=== PATIENT | female | born 1935 | race Caucasian/White ===

== ENCOUNTER 2017-02-28 08:55 | Inpatient (IN) | payer MEDICARE, OTHER ==
[~2017-02-28] VITALS: Ht 152.4 cm; Wt 76.6 kg
[2017-02-28] VITALS (7 sets, daily range): BP systolic 143–173; BP diastolic 77–90; PULSE 86–96; RESP 15–19; O2SAT 93–96
[~2017-02-28 08:55] MED LIST: ACET-837 PO; ALBU90AE IH; AMIL5TAB2 PO; ASPI-973 PO; ATEN25TA PO; BECL8.7A6 IH; CHOL500050 PO; CLOP75TA28; CYAN100085 IJ; CYCL10TA9 PO; DEXT1DRO8 BOTH_EYES; ESTR0.5T PO; FLUT9.9S AD; FURO40TA4 PO; HYDR-656 PO; HYOS0.3740 PO; LANS15TA3 PO; NYST1000 PO; VENL37.53 PO; VITA400C64 PO; ZYL100 PO; [UNRECOGNIZED DRUG - CODE] IV
[2017-02-28] MEDS ORDERED: 0.9% Sodium Chloride 1,000 ML IV ONE ×2 (09:26→09:40)
[2017-02-28] MEDS ORDERED: fentaNYL-PF 50 mCg/mL 2 mL Inj IVPUSH PRN ×2 (09:30→17:10)
[2017-02-28] MEDS ORDERED: Ondansetron 2 mg/mL 2 mL Inj IVPUSH ONE (09:30)
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
[2017-02-28] MEDS ORDERED: Ondansetron 8 mg ODT Tablet PO ONE (09:45)
[2017-02-28 10:19] LABS: BASOPHILS % (AUTO) 0.1 % (0-3); MONOCYTES % (AUTO) 7.5 % (4-12); Mean Corpuscular Hemoglobin 30.6 pg (27.0-35.0); Mean Corpuscular Volume 91.7 fL (81-100); NEUTROPHILS % (AUTO) 82.8 % (40-74); Platelet Count 325 bil/L (150-400)
[2017-02-28 10:43] LABS: Magnesium 1.6 mg/dL (1.6-2.6)
[2017-02-28] MEDS: fentaNYL-PF 50 mCg/mL 2 mL Inj IVPUSH PRN ×4 (11:12→22:40)
[2017-02-28] MEDS ORDERED: ProchlorPERazine 5 mg/mL 2 mL Inj IVPUSH ONE (11:40)
--- NOTE | 2017-02-28 11:42 | DRSVH ---
PROCEDURE: CT ABDOMEN AND PELVIS WITH CONTRAST ([id number]) INDICATIONS: ABd pain TECHNIQUE: After the administration of intravenous contrast, 5 mm thick sections acquired from the diaphragm to the symphysis. 5 mm coronal and sagittal reformats were acquired. For radiation dose reduction, the following was used: automated exposure control, adjustment of mA and/or kV according to patient pippa worley. COMPARISON: [facility], CT, CT ABD PELVIS WO CON, 11/18/2015, 4:04. [facility] al, CT, CT ABD PELVIS W CON, 09/17/2016, 16:59. FINDINGS: Image quality: Excellent. ABDOMEN: Lung bases: 19 mm diameter ovoid density within the right lung base, which was not seen on prior exa minations. Lung bases are otherwise clear. Heart size is normal. Solid organs: Liver and spleen are normal in size and enhancement. Gallbladder is surgically absent . Biliary system is non dilated. Pancreas enhances normally. No adrenal nodules. Kidneys demonstr ate normal size and enhancement, without hydronephrosis. Peritoneum and bowel: Moderate hiatal hernia. Stomach is nondistended. Multiple mildly distended and fluid-filled small bowel loops are present, extending to the distal ileum. Colon is nondistended. Sig moid colon anastomosis has been performed. No free fluid or air. No change in mesenteric groundglass density within the right hemipelvis, consistent with scarring. Nodes and vessels: No retroperitoneal or mesenteric adenopathy by size criteria. Aorta and inferior vena cava are normal in size. Miscellaneous: No ventral hernias. PELVIS: Genitourinary: Bladder wall thickness is normal. Miscellaneous: No inguinal hernias or adenopathy. Bones: No suspicious bony lesions. No vertebral body compression fractures. IMPRESSION: 1. Multiple mildly distended and fluid-filled small bowel loops, consistent with obstruction versus i leus/gastroenteritis. 2. No abscess. 3. Moderate hiatal hernia is unchanged. 4. Appendix not seen. No evidence of appendicitis. 5. Right lung base nodule, which is indeterminate. Initial further assessment with chest CT with intr avenous contrast is recommended. Dictated by: Tenisha Foote M.D. on 02/28/2017 at 11:37 Approved by: Tenisha Foote M.D. on 02/28/2017 at 11:41
[2017-02-28] MEDS ORDERED: Dextrose 5% 500 ML IV SCH (14:23)
[2017-02-28] MEDS ORDERED: 0.9% Sodium Chloride 1,000 ML IV SCH (14:23)
[2017-02-28] MEDS ORDERED: Alum-Mag Hydrox-Simeth 30 mL Suspension PO PRN (14:25)
[2017-02-28] MEDS ORDERED: Ondansetron 2 mg/mL 2 mL Inj IVPUSH PRN ×2 (14:25→15:05)
[2017-02-28] MEDS ORDERED: fentaNYL PCA 10 mCg/mL 30 mL Inj IV PRN (14:25)
[2017-02-28 15:01] LABS: APPEARANCE,URINE CLEAR (CLEAR,HAZY); COLOR,URINE YELLOW (YELLOW)
[2017-02-28 15:02] LABS: OCCULT BLOOD,URINE NEGATIVE (NEGATIVE); PH,URINE 5.5 (5.0-8.0); UROBILINOGEN,URINE NORMAL (NORMAL)
--- NOTE | 2017-02-28 15:15 | PCM.HPMED ---
Subjective Date of Service February 28, 2017 Primary Provider: Admitting Physician: Malik Durbin MD Primary Care Physician: Roosevelt Alonzo MD Attending Physician: Malik Durbin MD Chief Complaint: abdominal pain, nausea, vomiting. History of Present Illness: 81yo lady with hx of multiple abdominal surgeries, sbo, crohn's disease, asthma , hx of bladder ca, hld, fibromyalgia 1-2 day hx of generalized abd pain, n/v. inability to tolerate po. no fevers or chills. she is unaware of an inciting factor. symptoms progressively getting worse. no relieving factors at home. improved with pain medication in er. reports opiates cause her to hallucinate ok with fentanyl that was given in er. does not want ng tube to be placed. wants to try bowel rest and pain control. Review of Systems: Positive Review of Symptoms mentioned and elaborated on in HPI. Head: Denies H/A, trauma, loss of consciousness. Eyes: Denies visual loss, diplopia. Ears: Denies: deafness, tinnitis, discharge, pain Nose: Denies discharge, obstruction, epistaxis Mouth: Denies sores, gingival bleeding, jaw pain Neck: Denies stiffness, issues swallowing. Respiratory: Denies dyspnea, cough, sputum. Cardiovascular:Denies CP, palpitations, orthopnea, peripheral edema Gastrointestinal: see hpi Denies melena Genitourinary: Denies dysuria, discharge. Skin: Denies: lesions, rashes, pruritus. Musculoskeletal: Denies joint pain, swelling or increased warmth. Neuro: Denies numbness, tingling, weakness. Psyc: Currently denies feelings of anxiety, depression. Allergies Coded Allergies: Oily Fish (Verified Allergy, Severe, UNKNOWN, 02/28/17) amitriptyline (Verified Allergy, Severe, diarrhea, 02/28/17) azathioprine sodium (Verified Allergy, Severe, pancreatitis, 02/28/17) duloxetine HCl (Verified Allergy, Severe, hallucinations, 02/28/17) iodine (Verified Allergy, Severe, 02/28/17) PATIENT HAS HAD CAT SCANS WITH CONTRAST AT [facility] WITHOUT ANY COMPLICATIONS. NO SENSITIVITY TO CONTRAST DYE. SCAN ON 09/17 WITHOUT A REACTION AT [facility] lorazepam (Verified Allergy, Severe, 02/28/17) metoclopramide (Verified Allergy, Severe, 02/28/17) moxifloxacin (Unverified Allergy, Severe, 02/28/17) nefazodone HCl (Verified Allergy, Severe, 02/28/17) pregabalin (Verified Allergy, Severe, 02/28/17) makes her "goofy" trazodone (Verified Allergy, Severe, 02/28/17) Common Ragweed (Verified Allergy, Intermediate, 02/28/17) azathioprine (Verified Allergy, Intermediate, 02/28/17) hydromorphone (Verified Allergy, Intermediate, nausea/vomiting, 02/28/17) meloxicam (Verified Allergy, Intermediate, very sick, 02/28/17) budesonide (Verified Allergy, Mild, itching and prednisone type reactions , 02/28/17) oxycodone (Verified Allergy, Mild, itching, 02/28/17) prednisone (Verified Allergy, Mild, 06/11/16) tramadol HCl (Verified Allergy, Mild, irritable, sleep px, difficult to d/ c, 02/28/17) Penicillins (Verified Allergy, Unknown, 02/28/17) amoxicillin (Verified Allergy, Unknown, 02/28/17) cefuroxime (Verified Allergy, Unknown, 11/26/15) clavulanic acid (Verified Allergy, Unknown, 02/28/17) indomethacin (Verified Allergy, Unknown, 02/28/17) simvastatin (Verified Allergy, Unknown, fatigue and nausea, 02/28/17) tramadol (Verified Allergy, Unknown, 02/28/17) carisoprodol (Verified Adverse Reaction, Intermediate, night sweats and nightmares, 02/28/17) clindamycin (Verified Adverse Reaction, Intermediate, vomiting and buring in stomach, 06/11/16) gabapentin (Verified Adverse Reaction, Intermediate, behavior issues, 06/11) pravastatin (Verified Adverse Reaction, Intermediate, achey, tired and cold, 02/28/17) amoxicillin trihydrate (Verified Adverse Reaction, Mild, diarrhea, 02/28/17) citalopram hydrobromide (Verified Adverse Reaction, Mild, headache, 02/28/17 ) clarithromycin (Verified Adverse Reaction, Mild, terrible diarrhea, 02/28/17 ) doxycycline (Verified Adverse Reaction, Mild, nausea and diarrhea, 02/28/17) escitalopram oxalate (Verified Adverse Reaction, Mild, headache, 02/28/17) nitrofurantoin (Verified Adverse Reaction, Mild, diarrhea, 02/28/17) Home Medications see med rec PMH as mentioned in hpi Surgical History gallbladder, hysterectomy, bladder surgery, colon resection Family History mom breast ca, sister cva Social History Hx Alcohol Use: No Hx Substance Use: No Hx Tobacco Use: No Smoking Status: Never Smoker Exam Vital Signs Vital Sign - Last Date Time Temp Pulse Resp B/P Pulse Ox O2 Delivery O2 Flow Rate FiO2 02/28/17 14:45 36.9 96 16 143/81 96 Room Air Exam General: No acute distress. Awake, alert. Head: Normocephalic, atraumatic. Eyes: White sclera. Conjunctiva non-injected. Mouth & Throat: No Bleeding. No erythema, lesions, exudates visualized. Neck: No tender adenopathy. Trachea midline. Respiratory: Clear to auscultation bilaterally. Symmetric chest expansion. Regular work of breathing without use of accessory muscles. Cardiovascular: S1, S2. Regular rate and rhythm without murmurs, rubs or gallops. Pulses 2+ equal bilaterally. Abdomen: Normal bowel sounds x4 quadrants. Soft, non-tender, mild distension. scattered areas of tenderness. no rebound tenderness, no peritoneal signs. Extremities: Intact. no joint effusions. no lower extremity tenderness, swelling, erythema or increased warmth. Skin: Intact, no lesions, no rash. Neurologic: Awake, alert, oriented x3. No focal deficits. Psychiatric: Appropriate mood and affect. Cooperative. Lab and Diagnostics Result Diagram: 02/28/17 1000 02/28/17 1000 X-Rays, CTs and MRIs Date of Service: 02/28/17 0926 PROCEDURE: CT ABDOMEN AND PELVIS WITH CONTRAST ([id number]) INDICATIONS: ABd pain TECHNIQUE: After the administration of intravenous contrast, 5 mm thick sections acquired from the diaphragm to the symphysis. 5 mm coronal and sagittal reformats were acquired. For radiation dose reduction, the following was used: automated exposure control, adjustment of mA and/or kV according to patient size. COMPARISON: [facility], CT, CT ABD PELVIS WO CON, 11/18/2015, 4:04. [facility], CT, CT ABD PELVIS W CON, 09/17/2016, 16:59. FINDINGS: Image quality: Excellent. ABDOMEN: Lung bases: 19 mm diameter ovoid density within the right lung base, which was not seen on prior examinations. Lung bases are otherwise clear. Heart size is normal. Solid organs: Liver and spleen are normal in size and enhancement. Gallbladder is surgically absent. Biliary system is non dilated. Pancreas enhances normally. No adrenal nodules. Kidneys demonstrate normal size and enhancement, without hydronephrosis. Peritoneum and bowel: Moderate hiatal hernia. Stomach is nondistended. Multiple mildly distended and fluid-filled small bowel loops are present, extending to the distal ileum. Colon is nondistended. Sigmoid colon anastomosis has been performed. No free fluid or air. No change in mesenteric groundglass density within the right hemipelvis, consistent with scarring. Nodes and vessels: No retroperitoneal or mesenteric adenopathy by size criteria. Aorta and inferior vena cava are normal in size. Miscellaneous: No ventral hernias. PELVIS: Genitourinary: Bladder wall thickness is normal. Miscellaneous: No inguinal hernias or adenopathy. Bones: No suspicious bony lesions. No vertebral body compression fractures. IMPRESSION: 1. Multiple mildly distended and fluid-filled small bowel loops, consistent with obstruction versus ileus/gastroenteritis. 2. No abscess. 3. Moderate hiatal hernia is unchanged. 4. Appendix not seen. No evidence of appendicitis. 5. Right lung base nodule, which is indeterminate. Initial further assessment with chest CT with intravenous contrast is recommended. Dictated by: Tenisha Foote M.D. on 02/28/2017 at 11:37 Approved by: Tenisha Foote M.D. on 02/28/2017 at 11:41 Assessment & Plan -- small bowel obstruction she would like to attempt bowel rest. pain control. ivf. differ ng tube placment for now. if symptoms worsen may be necessary as well as general surgery evaluation. cont to monitor. -- R lung base nodule will need outpt f/u with ct chest with iv contrast as recommended by the radiologist. -- crohns disease -- asthma -- hld -- fibromyalgia cont medical managment as tolerated f/e/n: ivf. npo dispo: admit to med/surg with expected LOS >2 midnights. Pain Evaluation: Adequate Pain Control VTE Prophylaxis: Sub-Q Heparin (Unfractionated) Resuscitation Status: CPR: Attempt Resuscitation Malik Durbin MD February 28, 2017 15:15
[2017-02-28] MEDS: 0.9% Sodium Chloride 1,000 ML IV SCH (17:15)
[2017-02-28] MEDS: Heparin 5,000 Unit/mL Inj SUBQ SCH (17:25)
[2017-02-28] MEDS ORDERED: fentaNYL-PF 50 mCg/mL 2 mL Inj IVPUSH ONE (21:10)
[2017-03-01] VITALS (7 sets, daily range): BP systolic 156–160; BP diastolic 60–97; PULSE 89–101; RESP 16–19; O2SAT 96–98
[2017-03-01] MEDS: Acetaminophen IV 1,000 MG in IV Premix 1 EACH IV PRN ×3 (01:08→16:19)
[2017-03-01] MEDS: 0.9% Sodium Chloride 1,000 ML IV SCH ×3 (01:08→22:39)
[2017-03-01] MEDS: Heparin 5,000 Unit/mL Inj SUBQ SCH ×3 (01:14→16:22)
[2017-03-01] MEDS: fentaNYL-PF 50 mCg/mL 2 mL Inj IVPUSH PRN ×4 (05:22→20:52)
[2017-03-01 06:25] LABS: BASOPHILS % (AUTO) 0.1 % (0-3); MONOCYTES % (AUTO) 9.2 % (4-12); Mean Corpuscular Hemoglobin 29.6 pg (27.0-35.0); Mean Corpuscular Volume 93.8 fL (81-100); NEUTROPHILS % (AUTO) 76.2 % (40-74); Platelet Count 353 bil/L (150-400)
[2017-03-01 06:40] LABS: Magnesium 1.6 mg/dL (1.6-2.6)
--- NOTE | 2017-03-01 09:53 | DRSVH ---
PROCEDURE: X-RAY ABDOMEN WITH ERECT AND/OR DECUBITUS VIEWS ([id number]) INDICATIONS: SMALL BOWEL OBSTRUCTION TECHNIQUE: 2 views of the abdomen were acquired. COMPARISON: [facility], CT, CT ABD PELVIS W CON, 02/28/2017, 11:18. [facility] l, CR, XR ABD W ERECT + OR DECUB 2 VW, 09/18/2016, 7:55. Multiple surgical clips noted throughout th e abdomen and pelvis. Bowel: Bowel gas pattern is nonspecific. There are short air-fluid levels visualized on the upright examination throughout the abdomen otherwise the bowel gas pattern appears normal. Contrast media pr esent within the urinary bladder. Soft tissues: No masses; visualized solid organ contours appear normal in size. No suspicious abdom inal calcifications. Bones: No suspicious bony abnormalities. IMPRESSION: 1. Nonspecific bowel gas pattern with air multiple short air-fluid levels seen throughout the abdomen . Mild partial small bowel obstruction cannot be excluded in close clinical correlation/follow up re commended. Dictated by: Joe BILLINGS Interpreted: Urmila Khanna MD on 03/01/2017 at 9:52 Transcribed by: GERARD on 03/01/2017 at 9:53 Approved by: Urmila Khanna M.D. on 03/02/2017 at 16:55
--- NOTE | 2017-03-01 12:47 | PCM.PNMED ---
Subjective Date of Service March 01, 2017 Subjective feels a little bit better but still uncomfortable. no appetite. passed gas and had small bowel movement denies: vomiting, severe abd pain, chest pain, dyspnea, headache, fevers, chills. Exam Vital Signs Vital Sign - Last Date Time Temp Pulse Resp B/P Pulse Ox O2 Delivery O2 Flow Rate FiO2 03/01/17 10:56 36.4 99 16 160/97 96 Room Air 02/28/17 15:30 2.00 Intake and Output 02/28/17 02/28/17 03/01/17 Cumulative From/Thru 15:00 23:00 07:00 02/28/17 09:05 - 03/01/17 06:50 Intake Total 2000 ml 303 ml 0 ml 2303 ml Output Total 250 ml 600 ml 850 ml Balance 2000 ml 53 ml -600 ml 1453 ml Intake Oral 0 ml 0 ml 0 ml IV Total 2000 ml 303 ml 2303 ml Output Urine Total 250 ml 600 ml 850 ml # Bowel Movements 2 2 Exam General: No acute distress. Awake, alert. Head: Normocephalic, atraumatic. Eyes: White sclera. Conjunctiva non-injected. Mouth & Throat: No Bleeding. No erythema, lesions, exudates visualized. Neck: No tender adenopathy. Trachea midline. Respiratory: Clear to auscultation bilaterally. Symmetric chest expansion. Regular work of breathing without use of accessory muscles. Cardiovascular: S1, S2. Regular rate and rhythm without murmurs, rubs or gallops. Pulses 2+ equal bilaterally. Abdomen: Normal bowel sounds x4 quadrants. Soft, non-tender, mild distension. scattered areas of tenderness. no rebound tenderness, no peritoneal signs. Extremities: Intact. no joint effusions. no lower extremity tenderness, swelling, erythema or increased warmth. Skin: Intact, no lesions, no rash. Neurologic: Awake, alert, oriented x3. No focal deficits. Psychiatric: Appropriate mood and affect. Cooperative. IVs and Medications Medications Reviewed: Medications were reviewed in detail Lab and Diagnostics Result Diagram: 03/01/1755403/01/1755 X-Rays, CTs and MRIs Date of Service: 02/28/17925 PROCEDURE: CT ABDOMEN AND PELVIS WITH CONTRAST ([id number]) INDICATIONS: ABd pain TECHNIQUE: After the administration of intravenous contrast, 5 mm thick sections acquired from the diaphragm to the symphysis. 5 mm coronal and sagittal reformats were acquired. For radiation dose reduction, the following was used: automated exposure control, adjustment of mA and/or kV according to patient size. COMPARISON: [facility], CT, CT ABD PELVIS WO CON, 11/18/2015, 4:04. [facility], CT, CT ABD PELVIS W CON, 09/17/2016, 16:59. FINDINGS: Image quality: Excellent. ABDOMEN: Lung bases: 19 mm diameter ovoid density within the right lung base, which was not seen on prior examinations. Lung bases are otherwise clear. Heart size is normal. Solid organs: Liver and spleen are normal in size and enhancement. Gallbladder is surgically absent. Biliary system is non dilated. Pancreas enhances normally. No adrenal nodules. Kidneys demonstrate normal size and enhancement, without hydronephrosis. Peritoneum and bowel: Moderate hiatal hernia. Stomach is nondistended. Multiple mildly distended and fluid-filled small bowel loops are present, extending to the distal ileum. Colon is nondistended. Sigmoid colon anastomosis has been performed. No free fluid or air. No change in mesenteric groundglass density within the right hemipelvis, consistent with scarring. Nodes and vessels: No retroperitoneal or mesenteric adenopathy by size criteria. Aorta and inferior vena cava are normal in size. Miscellaneous: No ventral hernias. PELVIS: Genitourinary: Bladder wall thickness is normal. Miscellaneous: No inguinal hernias or adenopathy. Bones: No suspicious bony lesions. No vertebral body compression fractures. IMPRESSION: 1. Multiple mildly distended and fluid-filled small bowel loops, consistent with obstruction versus ileus/gastroenteritis. 2. No abscess. 3. Moderate hiatal hernia is unchanged. 4. Appendix not seen. No evidence of appendicitis. 5. Right lung base nodule, which is indeterminate. Initial further assessment with chest CT with intravenous contrast is recommended. Dictated by: Tenisha Foote M.D. on 02/28/2017 at 11:37 Approved by: Tenisha Foote M.D. on 02/28/2017 at 11:41 Assessment & Plan -- small bowel obstruction she would like to attempt bowel rest. pain control. ivf. still does not want ng tube. want to still wait and see if it gets better on its own. cont npo. gastrografin challenge / xrays in am. if no resolution surgery consult. -- R lung base nodule will need outpt f/u with ct chest with iv contrast as recommended by the radiologist. -- crohns disease -- asthma -- hld -- fibromyalgia cont medical managment as tolerated f/e/n: ivf. npo dispo: pending cont clinical improvement gastrografin challenge in am. VTE Prophylaxis: Sub-Q Heparin (Unfractionated) VTE Mechanical Devices: Intermittant Pneumatic CD Resuscitation Status: CPR: Attempt Resuscitation Malik Durbin MD March 01, 2017 12:47
[2017-03-01] MEDS ORDERED: 0.9% Sodium Chloride 250 ML IV SCH (19:12)
[2017-03-01] MEDS ORDERED: Sodium Chloride LOK Flush 10 mL Syringe IVFLUSH PRN ×2 (19:15)
[2017-03-01] MEDS ORDERED: HepLOK Flush 100 unit/mL 5 mL Inj IVFLUSH PRN (19:15)
[2017-03-02] MEDS: Heparin 5,000 Unit/mL Inj SUBQ SCH ×2 (00:58→09:05)
[2017-03-02] MEDS: fentaNYL-PF 50 mCg/mL 2 mL Inj IVPUSH PRN (02:26)
[2017-03-02 06:05] VITALS: BP 147/83; PULSE 95; RESP 16; O2SAT 96
[2017-03-02] MEDS: 0.9% Sodium Chloride 1,000 ML IV SCH (09:03)
[2017-03-02] MEDS ORDERED: Magnesium Sulf 2 Gm/50mL Water 2 GM in IV Premix 1 EACH IV ONE (12:05)
--- NOTE | 2017-03-02 14:17 | PCM.DIMED ---
Discharge Instructions Date of Service March 02, 2017 Dates of Hospitalization February 28, 2017 at 14:32 Discharge Diagnosis Discharge Diagnosis 1. Small bowel obstruction, recurrent. This is resolved. 2. Hypomagnesemia, recurrent. Improved. 3. Crohn's disease, stable. Diet Other Activity No restrictions Call your provider Other (recurrent abdominal pain, vomiting.) Patient Instructions Call PCP if having intermittent problems with abdomen or other questions. Roosevelt Alonzo MD March 02, 2017 14:17
--- NOTE | 2017-03-02 14:20 | PCM.DC.MED ---
Discharge Summary Date of Service March 02, 2017 Dates of Hospitalization Date of Hospital Admission February 28, 2017 at 14:32 Date of Discharge: March 02, 2017 Providers: Admitting Physician: Malik Durbin MD Primary Care Physician: Roosevelt Alonzo MD Attending Physician: Malik Durbin MD Diagnosis at Time of Discharge Diagnosis at Time of Discharge 1. Small bowel obstruction, recurrent. This is resolved. 2. Hypomagnesemia, recurrent. Improved. 3. Crohn's disease, stable. Consultations None Procedures XRay, CTs & MRIs Date of Service: 02/28/17 0926 PROCEDURE: CT ABDOMEN AND PELVIS WITH CONTRAST ([id number]) INDICATIONS: ABd pain TECHNIQUE: After the administration of intravenous contrast, 5 mm thick sections acquired from the diaphragm to the symphysis. 5 mm coronal and sagittal reformats were acquired. For radiation dose reduction, the following was used: automated exposure control, adjustment of mA and/or kV according to patient size. COMPARISON: [facility], CT, CT ABD PELVIS WO CON, 11/18/2015, 4:04. [facility], CT, CT ABD PELVIS W CON, 09/17/2016, 16:59. FINDINGS: Image quality: Excellent. ABDOMEN: Lung bases: 19 mm diameter ovoid density within the right lung base, which was not seen on prior examinations. Lung bases are otherwise clear. Heart size is normal. Solid organs: Liver and spleen are normal in size and enhancement. Gallbladder is surgically absent. Biliary system is non dilated. Pancreas enhances normally. No adrenal nodules. Kidneys demonstrate normal size and enhancement, without hydronephrosis. Peritoneum and bowel: Moderate hiatal hernia. Stomach is nondistended. Multiple mildly distended and fluid-filled small bowel loops are present, extending to the distal ileum. Colon is nondistended. Sigmoid colon anastomosis has been performed. No free fluid or air. No change in mesenteric groundglass density within the right hemipelvis, consistent with scarring. Nodes and vessels: No retroperitoneal or mesenteric adenopathy by size criteria. Aorta and inferior vena cava are normal in size. Miscellaneous: No ventral hernias. PELVIS: Genitourinary: Bladder wall thickness is normal. Miscellaneous: No inguinal hernias or adenopathy. Bones: No suspicious bony lesions. No vertebral body compression fractures. IMPRESSION: 1. Multiple mildly distended and fluid-filled small bowel loops, consistent with obstruction versus ileus/gastroenteritis. 2. No abscess. 3. Moderate hiatal hernia is unchanged. 4. Appendix not seen. No evidence of appendicitis. 5. Right lung base nodule, which is indeterminate. Initial further assessment with chest CT with intravenous contrast is recommended. Dictated by: Tenisha Foote M.D. on 02/28/2017 at 11:37 Approved by: Tenisha Foote M.D. on 02/28/2017 at 11:41 Invasive Procedures None Brief History 81yo lady with hx of multiple abdominal surgeries, sbo, crohn's disease, asthma , hx of bladder ca, hld, fibromyalgia 1-2 day hx of generalized abd pain, n/v. inability to tolerate po. no fevers or chills. she is unaware of an inciting factor. symptoms progressively getting worse. no relieving factors at home. improved with pain medication in er. reports opiates cause her to hallucinate ok with fentanyl that was given in er. does not want ng tube to be placed. wants to try bowel rest and pain control. Hospital Course -- small bowel obstruction She declined nasogastric tube suction was made nothing by mouth. She improved symptomatically with fluid resuscitation, bowel rest and ultimately had improved pain was able to advance her diet on the day of discharge. This is consistent with previous episodes. She requested discharge home to continue very slow advance. -- R lung base nodule will need outpt f/u with ct chest with iv contrast as recommended by the radiologist. -- crohns disease, stable. No other difficulties during hospitalization -- asthma, stable. No other difficulties during hospitalization -- hld -- fibromyalgia cont medical managment as tolerated The patient is felt to be stable for discharge home with close follow-up. Exam Vital Signs (Last) Date Time Temp Pulse Resp B/P Pulse Ox O2 Delivery O2 Flow Rate FiO2 03/02/17 06:05 36.6 95 16 147/83 96 Room Air 02/28/17 15:30 2.00 Exam Patient was seen and examined the day of discharge. Soft and nontender with normal active bowel tones. Test 02/28/17 10:00 02/28/17 13:18 03/01/17 05:55 Lipase 16U/L (13-60) Urine Color Yellow (YELLOW) Urine Appearance Clear (CLEAR,HAZY) Urine pH 5.5 (5.0-8.0) Urine Specific [place] 1.010 (1.003-1.035) Urine Protein Negativemg/dL (NEG,TRACE) Urine Glucose (UA) Negativemg/dL (NEGATIVE) Urine Ketones Negativemg/dL (NEGATIVE) Urine Occult Blood Negative (NEGATIVE) Urine Nitrite Negative (NEGATIVE) Urine Bilirubin Negative (NEGATIVE) Urine Urobilinogen Normalmg/dL (NORMAL) Urine Leukocyte Esterase Negative (NEGATIVE) Urine RBC 0-2/hpf (0-2) Urine WBC 0-5/hpf (0-5) Urine Epithelial Cells Few/hpf (NONE-MOD) Urine Crystals None seen (NONE SEEN) Urine Bacteria Few/hpf (NONE-FEW) Urine Hyaline Casts None/lpf (NONE) Urine Granular Casts None seen (NONE SEEN) Urine Waxy Casts None seen (NONE SEEN) Urine Red Blood Cell Casts None seen (NONE SEEN) Urine White Blood Cell Casts None seen (NONE SEEN) Urine Mucus None seen (None Seen) Urine Trichomonas None seen (NONE SEEN) Urine Yeast None (NONE SEEN) Urinalysis Comment None Urine Culture Reflexed Not indicated Hold Urine Received (Received) White Blood Count 9.5th/mm3 (3.8-10.1) Red Blood Count 3.89mil/mm3 (3.90-5.20) Hemoglobin 11.5g/dL (12.0-15.6) Hematocrit 36.5% (35.0-46.0) Mean Corpuscular Volume 93.8fL (81-100) Mean Corpuscular Hemoglobin 29.6pg (27.0-35.0) Mean Corpuscular Hemoglobin Concent 31.5% (32.0-37.0) Red Cell Distribution Width 12.2% (12.3-15.4) Platelet Count 353bil/L (150-400) Neutrophils (%) (Auto) 76.2% (40-74) Lymphocytes (%) (Auto) 13.2% (14-46) Monocytes (%) (Auto) 9.2% (4-12) Eosinophils (%) (Auto) 1.0% (0-5) Basophils (%) (Auto) 0.1% (0-3) Sodium Level 138mEq/L (134-144) Potassium Level 4.6mEq/L (3.5-5.2) Chloride Level 101mEq/L (97-108) Carbon Dioxide Level 23mmol/L (18-29) Blood Urea Nitrogen 16mg/dL (8-27) Creatinine 1.02mg/dL (0.57-1.00) Estimat Glomerular Filtration Rate 74mL/min (>59) Glucose Level 136mg/dL (60-99) Calcium Level 9.0mg/dL (8.5-10.1) Magnesium Level 1.6mg/dL (1.6-2.6) Total Bilirubin 0.4mg/dL (0.0-1.2) Aspartate Amino Transf (AST/SGOT) 18U/L (0-50) Alanine Aminotransferase (ALT/SGPT) 18U/L (0-32) Alkaline Phosphatase 122U/L (25-165) Total Protein 5.9g/dL (6.4-8.4) Albumin 3.5g/dL (3.4-5.0) Discharge Medications Discharge Medications Allopurinol (Allopurinol) 100 Mg Tablet 100 MG PO DAILY (Reported) Amiloride (Amiloride) 5 Mg Tablet 5 MG PO DAILY (Reported) Aspirin (Aspirin) 81 Mg Tablet 81 MG PO DAILY Prescribed by: ERICKA THAPA MD Atenolol (Atenolol) 25 Mg Tablet 25 MG PO BID (Reported) Beclomethasone Dipropionate (Qvar) 8.7 Gm Aer.w.adap 8.7 GM IH BID (Reported) Cholecalciferol (Vitamin D3) (Vitamin D3) 50,000 Unit Capsule 50,000 UNIT PO Every three days (Reported) Clopidogrel (Clopidogrel) 75 Mg Tablet DAILY (Reported) Cyanocobalamin (Vitamin B-12) (Vitamin B-12) 1,000 Mcg/1 Ml Drops 1,000 MCG IJ Monthly (Reported) Cyclobenzaprine (Cyclobenzaprine) 10 Mg Tablet 10 MG PO BID (Reported) Furosemide (Furosemide) 40 Mg Tablet 40 MG PO DAILY (Reported) Lansoprazole ODT (Prevacid ODT) 15 Mg Tablet 30 MG PO DAILY (Reported) Magnesium Sulfate/D5w (Magnesium-D5w 4 G/100 ml) 4 Gm/100 Ml Piggyback 4 GM IV WEEKLY (Reported) Weekly and PRN per labs Venlafaxine ER (Effexor XR) 37.5 Mg Capsule 37.5 MG PO DAILY (Reported) As needed Acetaminophen/Codeine 300-60mg (Tylenol/Codeine #4) 1 Each Tablet 1 TABLET PO 5XD PRN PRN Pain (Reported) Albuterol Sulfate (Proair Respiclick) 90 Mcg Aer.pow.ba 90 MCG IH DIRECTED PRN PRN For Shortness of Breath (Reported) Dextran 70/Hypromellose/Pf (Artificial Tears Drops) 1 Each Droperette 1 DROP BOTH_EYES PRN For Eye Irritation (Reported) Fluticasone Propionate (Flonase Allergy Relief) 9.9 Ml [place]lap.susp 1 SPRAY AD BID PRN PRN allergy symptoms (Reported) Hyoscyamine ER (Hyoscyamine ER) 0.375 Mg Tablet 0.375 MG PO BID PRN PRN For Nausea (Reported) hydrOXYzine Hcl (HydrOXYzine Hcl) 25 Mg Tablet 25 MG PO 2-3x day PRN PRN itching or nausea (Reported) Miscellaneous Medications Nystatin (Nystatin) 100,000 Unit/1 Ml Oral.susp PO (Reported) Followup Plan Disposition: Home, with family Discharge Diet: Other Discharge Activity: No restrictions Patient Instructions Call PCP if having intermittent problems with abdomen or other questions. Time spent 40 minutes Roosevelt Alonzo MD March 02, 2017 14:20
[2017-03-27] MEDS ORDERED: AZIT250T4 PO (11:59)
== END 2017-03-02 15:42 | disposition home or self-care (01) | DRG 389 ==
LOC: SED 08:55 → OSC 14:32
PROVIDERS: ADMIT Family Medicine; ATTEND Family Medicine
DX: K56.69 Other intestinal obstruction (principal); K50.90 Crohn's disease, unspecified, without complications; I50.32 Chronic diastolic (congestive) heart failure; M79.7 Fibromyalgia; I27.2 Other secondary pulmonary hypertension; I10 Essential (primary) hypertension; E61.2 Magnesium deficiency; E78.5 Hyperlipidemia, unspecified; R91.1 Solitary pulmonary nodule; J45.909 Unspecified asthma, uncomplicated; Z88.1 Allergy status to other antibiotic agents; Z88.5 Allergy status to narcotic agent; Z88.0 Allergy status to penicillin; Z88.8 Allergy status to other drugs, medicaments and biological substances; Z79.82 Long term (current) use of aspirin; Z87.440 Personal history of urinary (tract) infections; I69.920 Aphasia following unspecified cerebrovascular disease; I69.922 Dysarthria following unspecified cerebrovascular disease; Z85.51 Personal history of malignant neoplasm of bladder

== ENCOUNTER 2017-07-04 16:20 | Emergency (ER) | payer MEDICARE, OTHER ==
[~2017-07-04 16:20] MED LIST changes: +AZIT250T4 PO; -ESTR0.5T PO; -VITA400C64 PO
== END 2017-07-04 17:13 | disposition left against medical advice (07) ==
LOC: SED 16:20
DX: Z53.20 Procedure and treatment not carried out because of patient's decision for unspecified reasons (principal)

== ENCOUNTER 2017-07-06 23:35 | Emergency (ER) | payer MEDICARE, OTHER ==
[~2017-07-06] VITALS: Ht 152.4 cm; Wt 74.5 kg
[2017-07-06 23:44] VITALS: BP 141/84; PULSE 96; RESP 18; O2SAT 100
--- NOTE | 2017-07-07 01:49 | ED.REPORT ---
HPI-General Illness Date of Service Jul 07, 2017 ED Provider: John Paul Mazariegos MD Pt is a 81 y/o female with a history of TIA, CHF. and hypertension who presents to the ED via EMS c/o multiple falls onset yesterday. Per pt's grandson, she fell at least 10 times yesterday, and several times today. She had two tooth extracted yesterday and was given percocet that she thinks she is reacting badly to. Additional symptoms include slurred speech, nausea and vomiting. Nursing Notes Stated Complaint: CONFUSION,MEDICATIONS QUESTIONS, HX TIA Chief Complaint: General Complaint Nursing Notes Reviewed: Yes Allergies: Coded Allergies: Oily Fish (Verified Allergy, Severe, UNKNOWN, 07/06/17) amitriptyline (Verified Allergy, Severe, diarrhea, 07/06/17) azathioprine sodium (Verified Allergy, Severe, pancreatitis, 07/06/17) duloxetine HCl (Verified Allergy, Severe, hallucinations, 07/06/17) iodine (Verified Allergy, Severe, 07/06/17) PATIENT HAS HAD CAT SCANS WITH CONTRAST AT [facility] WITHOUT ANY COMPLICATIONS. NO SENSITIVITY TO CONTRAST DYE. SCAN ON 09/17 WITHOUT A REACTION AT [facility] lorazepam (Verified Allergy, Severe, 07/06/17) metoclopramide (Verified Allergy, Severe, 07/06/17) moxifloxacin (Unverified Allergy, Severe, 07/06/17) nefazodone HCl (Verified Allergy, Severe, 07/06/17) pregabalin (Verified Allergy, Severe, 07/06/17) makes her "goofy" trazodone (Verified Allergy, Severe, 07/06/17) Common Ragweed (Verified Allergy, Intermediate, 07/06/17) azathioprine (Verified Allergy, Intermediate, 07/06/17) hydromorphone (Verified Allergy, Intermediate, nausea/vomiting, 07/06/17) meloxicam (Verified Allergy, Intermediate, very sick, 07/06/17) budesonide (Verified Allergy, Mild, itching and prednisone type reactions , 07/06/17) oxycodone (Verified Allergy, Mild, itching, 07/06/17) prednisone (Verified Allergy, Mild, 07/06/17) tramadol HCl (Verified Allergy, Mild, irritable, sleep px, difficult to d/ c, 07/06/17) Penicillins (Verified Allergy, Unknown, 07/06/17) amoxicillin (Verified Allergy, Unknown, 07/06/17) cefuroxime (Verified Allergy, Unknown, 07/06/17) clavulanic acid (Verified Allergy, Unknown, 07/06/17) indomethacin (Verified Allergy, Unknown, 07/06/17) simvastatin (Verified Allergy, Unknown, fatigue and nausea, 07/06/17) tramadol (Verified Allergy, Unknown, 07/06/17) carisoprodol (Verified Adverse Reaction, Intermediate, night sweats and nightmares, 07/06/17) clindamycin (Verified Adverse Reaction, Intermediate, vomiting and buring in stomach, 07/06/17) gabapentin (Verified Adverse Reaction, Intermediate, behavior issues, 07/06) pravastatin (Verified Adverse Reaction, Intermediate, achey, tired and cold, 07/06/17) amoxicillin trihydrate (Verified Adverse Reaction, Mild, diarrhea, 07/06/17 ) citalopram hydrobromide (Verified Adverse Reaction, Mild, headache, ) clarithromycin (Verified Adverse Reaction, Mild, terrible diarrhea, ) doxycycline (Verified Adverse Reaction, Mild, nausea and diarrhea, 07/06/17 ) escitalopram oxalate (Verified Adverse Reaction, Mild, headache, 07/06/17) nitrofurantoin (Verified Adverse Reaction, Mild, diarrhea, 07/06/17) Scheduled Allopurinol (Allopurinol) 100 Mg Tablet 100 MG PO DAILY Amiloride (Amiloride) 5 Mg Tablet 5 MG PO DAILY Aspirin (Aspirin) 81 Mg Tablet 81 MG PO DAILY Atenolol (Atenolol) 25 Mg Tablet 25 MG PO BID Azithromycin (Zithromax (Z-Kevin)) 250 Mg Tablet 250 MG PO DIRECTED Take two tablets by mouth on day 1, then take one tablet daily on days 2 through 5. Beclomethasone Dipropionate (Qvar) 8.7 Gm Aer.w.adap 8.7 GM IH BID Cholecalciferol (Vitamin D3) (Vitamin D3) 50,000 Unit Capsule 50,000 UNIT PO Every three days Clopidogrel (Clopidogrel) 75 Mg Tablet DAILY Cyanocobalamin (Vitamin B-12) (Vitamin B-12) 1,000 Mcg/1 Ml Drops 1,000 MCG IJ Monthly Cyclobenzaprine (Cyclobenzaprine) 10 Mg Tablet 10 MG PO BID Furosemide (Furosemide) 40 Mg Tablet 40 MG PO Q2DAY Lansoprazole ODT (Prevacid ODT) 15 Mg Tablet 30 MG PO DAILY Magnesium Sulfate/D5w (Magnesium-D5w 4 G/100 ml) 4 Gm/100 Ml Piggyback 4 GM IV WEEKLY Weekly and PRN per labs Venlafaxine ER (Effexor XR) 37.5 Mg Capsule 37.5 MG PO DAILY Scheduled PRN Acetaminophen/Codeine 300-60mg (Tylenol/Codeine #4) 1 Each Tablet 1 TABLET PO 5XD PRN PRN Pain Albuterol Sulfate (Proair Respiclick) 90 Mcg Aer.pow.ba 90 MCG IH DIRECTED PRN PRN For Shortness of Breath Dextran 70/Hypromellose/Pf (Artificial Tears Drops) 1 Each Droperette 1 DROP BOTH_EYES PRN For Eye Irritation Fluticasone Propionate (Flonase Allergy Relief) 9.9 Ml Hanna.susp 1 SPRAY AD BID PRN PRN allergy symptoms Hyoscyamine ER (Hyoscyamine ER) 0.375 Mg Tablet 0.375 MG PO BID PRN PRN For Nausea hydrOXYzine Hcl (HydrOXYzine Hcl) 25 Mg Tablet 25 MG PO 2-3x day PRN PRN itching or nausea Miscellaneous Medications Nystatin (Nystatin) 100,000 Unit/1 Ml Oral.susp PO General Time Seen by MD: 01:49 Chief Complaint Other (Multiple falls s/p taking percocet) Hx Obtained From: Patient, Other family... (Grandson) Arrived By: Walk-in Sudden in Onset?: Yes Onset Occurred: Yesterday Symptom Duration: Constant Quality: Painful Severity: Current: Mild Severity: Maximum: Moderate Recent Healthcare: Recent doctor visit Similar Sx Previous: No Past Medical History Past Medical History 1. Obesity/REM sleep disorder 2. Hypertension. 3. Congestive heart failure, chronic, diastolic, with pulmonary hypertension. 4. Asthma. 5. Fibromyalgia/chronic pain syndrome. 6. Crohn's disease. 7. Recurrent urinary tract infections, prior history of atypical chest pain with negative results of cardiac stress test. 8. Anemia of chronic disease. 9. Osteoarthritis. History of bladder cancer status post cystic polypectomy 10. 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 Short bowel syndrome 12. 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 TIAs 15. Bowel obstruction 16. Chronic renal insufficiency Reports: Cancer, Congestive heart failure, GERD, Hyperlipidemia, Hypertension, Stroke, Transient ischemic attack Reports: Depression, Thyroid disease Past Surgical History multiple colon resections Cystoscopy Foot surgery Ovarian removal Reports: Appendectomy, Cholecystectomy, Hysterectomy Reports: Portocath Family History Sister had stroke Smoking History Never Smoker Social History Patient is a . Currently, lives with grandchild. Alcohol Use: Denies alcohol use Drug Use: Denies drug use Other Social History: Local resident Ambulatory Status Independent Review of Systems Multiple falls Full Review of Systems Constitutional: Denies: Fever Respiratory: Denies: Non-productive cough, Prod cough, clear, Shortness of breath Cardiovascular: Denies: Chest pain GI: Reports: Nausea, Vomiting Neurologic: Reports: Slurred speech, Denies: Change LOC Complete sys rev & neg: except as marked. Physical Exam Vital Signs Vital Signs Date Time Temp Pulse Resp B/P Pulse Ox O2 Delivery O2 Flow Rate FiO2 07/06/17 23:44 36.5 96 18 141/84 100 Room Air Initial VS: Reviewed Neck: Supple, Full range of motion Respiratory: No respiratory distress Abdomen / GI: Soft, Non-tender Extremities: Vascular intact, Neuro intact, No swelling, No tenderness Skin: Warm, Dry, No cyanosis Neurologic: Alert, Oriented, Nonfocal Psychiatric: Mood/affect normal, Behavior normal, Normal thought content General/Constitutional: Awake, Alert Head / Eyes: Atraumatic, Normocephalic Redness under chin from tooth extraction yesterday Interpretation & Diagnostics CT Head Interpretation Impression: No CT evidence of hemorrhage, mass, or acute infarct. Study: Head CT no contrast Interpretation / Wet Read by: Interpret - Radiologist Re-Eval/Medical Decision Med Decision/Clinical Course 81-year-old who presents after dental extraction with some confusion and falls after taking Percocet. She tolerates Tylenol codeine and prefers that. CT shows no intercranial hemorrhage and no evidence of stroke. Exam does not suggest stroke either. Home now with Tylenol codeine and told to discontinue her Percocet. Discharged in stable condition. Source of Hx: Old records Time of Eval: 03:32 Re-Evaluation/Progress Note: Patient rechecked. Discussed plan for discharge. Patient understands and agrees with plan. F/U instructions and RTER warnings given. All questions addressed at this time. Counseled Regarding: Diagnosis, Lab results Discharge & Departure Primary Impression: Fall Encounter type: initial encounter Qualified Code: W19.XXXA - Unspecified fall, initial encounter Additional Impression: Confusion caused by a drug Disposition: Home Discharge Condition All VS Reviewed: Yes Condition: Stable Patient Instructions: Fall Prevention for Older Adults (ED) Additional Instructions: Resume your Tylenol codeine if that is preferable for your pain relief. Follow-up with your doctor in the office. We did not find any evidence of stroke or bleeding and your CAT scan. Return anytime for immediate issues. Referrals: Roosevelt Alonzo MD (PCP) Scribe Attestation Portions of this note were transcribed by Kristi Gross. I, Dr. Mazariegos, personally performed the history, physical exam and medical decision-making; I reviewed and confirmed the accuracy of the information in the transcribed note. copies to: Roosevelt Alonzo MD, Christopher W MD Jul 07, 2017 01:49 Kristi Gross Jul 07, 2017 01:57
[2017-07-07] MEDS ORDERED: Codeine-APAP 30-300 mg Tablet PO ONE (03:10)
--- NOTE | 2017-07-07 12:01 | DRSVH ---
PROCEDURE: CT BRAIN WITHOUT CONTRAST ([id number]) INDICATIONS: mult falls, confusion TECHNIQUE: Noncontrast 4.5 mm thick angled axial sections acquired from the foramen magnum to the vertex, with c oronal reformats. COMPARISON: [facility], CT, CT BRAIN WO CON, 04/20/2016, 3:02. FINDINGS: Image quality: Excellent. CSF spaces: Basal cisterns are patent. No extra-axial fluid collections. The ventricles are symmet glenn in size and shape. Brain: No intracranial bleeds or masses. There is cerebral volume loss for age, with resultant vent ricular and sulcal prominence. There are periventricular and deep white matter chronic small vessel ischemic changes. There is intracranial internal carotid artery atherosclerosis. Focus of chronic l acunar ischemia in the left internal capsule is present. Skull and face: Calvarium and visualized facial bones appear intact, without suspicious lesions. Sinuses: Visualized sinuses and mastoids are clear. IMPRESSION: 1. No acute intracranial process. 2. Moderate atrophy and chronic microvascular ischemic changes. Dictated by: Urmila Khanna M.D. on 07/07/2017 at 11:59 Approved by: Urmila Khanna M.D. on 07/07/2017 at 12:00
== END 2017-07-07 04:07 | disposition home or self-care (01) ==
LOC: SED 23:35
DX: R41.0 Disorientation, unspecified (principal); T40.605A Adverse effect of unspecified narcotics, initial encounter; W18.39XA Other fall on same level, initial encounter; Y93.9 Activity, unspecified; Y92.9 Unspecified place or not applicable; Y99.8 Other external cause status; I27.2 Other secondary pulmonary hypertension; I25.10 Atherosclerotic heart disease of native coronary artery without angina pectoris; I50.9 Heart failure, unspecified; E78.5 Hyperlipidemia, unspecified; Z86.73 Personal history of transient ischemic attack (TIA), and cerebral infarction without residual deficits; Z85.9 Personal history of malignant neoplasm, unspecified; Z90.710 Acquired absence of both cervix and uterus; Z79.82 Long term (current) use of aspirin; Z88.0 Allergy status to penicillin; Z88.1 Allergy status to other antibiotic agents; Z88.5 Allergy status to narcotic agent; Z88.8 Allergy status to other drugs, medicaments and biological substances